=== PATIENT | female | born 1965 | race Caucasian/White ===

== ENCOUNTER 2023-04-30 07:57 | Outpatient (OUT) | payer OTHER, SELFPAY ==
--- NOTE | 2023-04-30 08:19 | XR_ITS ---
The [address] [address] Patient Name: ALHAJI LAW MRN: [id number] date: 1965 Sex: F Assigned Patient Location: [facility] Current Patient Location: [facility] Accession/Order Number: [id number] Exam Date: 04/30/2023 08:15 Report Date: 04/30/2023 08:32 At the request of: TERESE MENG Procedure: XR foot LT min 3V PROCEDURE: XR foot LT min 3V COMPARISON: None. HISTORY: Closed Nondisplaced Fracture Of Third Metatarsal Bone Left FINDINGS: BONES:No acute abnormality. No fracture observed. Mild degenerative changes SOFT TISSUES:Negative. No visible soft tissue swelling. EFFUSION:None visible. OTHER: Negative. XR/XR foot LT min 3V IMPRESSION: No acute abnormality. No fracture observed. Mild degenerative changes Electronically authenticated by: FLORESITA GARDNER Date: 04/30/2023 08:32
== END 2023-04-30 07:58 | disposition home or self-care (01) ==
LOC: RAD 07:57
PROVIDERS: Visit Provider Orthopaedic Surgery
DX: S92.335A Nondisplaced fracture of third metatarsal bone, left foot, initial encounter for closed fracture (principal)
CPT/HCPCS: 73630